=== PATIENT | female | born 1925 | race Asian ===

== ENCOUNTER 2016-08-07 12:23 | Emergency (ER) | payer MEDICARE, OTHER ==
[~2016-08-07] VITALS: Ht 162.6 cm; Wt 70.4 kg
[~2016-08-07 12:23] MED LIST: ACET-2902 PO; ALBU0.424 IH; AMLO-511 PO; BISA10SU8 PR; CARV12 PO; CHOL200018 PO; CLON.1 PO; DEXT1CAP3 PO; DOCU240C PO; FERR-72 GT; LORA1TAB3 PO; MOM30 PO; ONDA4 PO; OXYB5TAB27 PO; PANT40TA25 PO; RISP.5 PO; SOLI5 PO; ZOLP5 PO
[2016-08-07] MEDS ORDERED: DIATRIZOATE MEGLU/SOD 660/100 MG/ML 120 ML BOTTLE ONE (14:59)
[2016-08-07 15:39] VITALS: BP 142/45
== END 2016-08-07 16:28 | disposition home or self-care (01) ==
LOC: EMS 12:31
DX: K94.23 Gastrostomy malfunction (principal); I10 Essential (primary) hypertension
CPT/HCPCS: 36245; 49440; 99284; C1769; Q9963

== ENCOUNTER 2016-08-24 16:29 | Emergency (ER) | payer MEDICARE, OTHER ==
[~2016-08-24] VITALS: Ht 172.7 cm; Wt 63.6 kg
[2016-08-24] MEDS ORDERED: FAMO20 PO (16:47)
[2016-08-24 17:16] LABS: BASOPHILS % (AUTO) 0.3 % (0.0-2.0); EOSINOPHILS % (AUTO) 4.3 % (1.0-6.0); HEMATOCRIT 34.1 % (36-46); HEMOGLOBIN 11.3 g/dL (12.0-16.0); LYMPHOCYTES # (AUTO) 1.6 K/uL (1.0-4.8); LYMPHOCYTES % (AUTO) 22.2 % (22.0-44.0); MEAN CORPUSCULAR HEMOGLOBIN 33.7 pg (26.0-34.0); MEAN CORPUSCULAR HGB CONC 33.1 G/dL (31.0-37.0); MEAN CORPUSCULAR VOLUME 102 fL (80-100); MONOCYTES # (AUTO) 0.6 K/uL (0.1-1.0); MONOCYTES % (AUTO) 8.2 % (2.0-9.0); NEUTROPHILS # (AUTO) 4.8 K/uL (1.8-7.7); PLATELET COUNT (AUTO) 268 K/uL (150-450); RED BLOOD CELL COUNT(AUTO) 3.36 MIL/uL (4.00-5.20); RED CELL DISTRIBUTION WIDTH 13.6 % (11.5-14.5); WHITE BLOOD COUNT (AUTO) 7.4 K/uL (4.5-11.0)
[2016-08-24 17:29] LABS: PROTHROMBIN TIME 10.2 SEC (9.4-11.6)
[2016-08-24 17:31] LABS: ANION GAP 7 mmol/L (8-16); CALCIUM, TOTAL 8.5 mg/dL (8.8-10.5); CARBON DIOXIDE 29 mmol/L (22-29); CHLORIDE 97 mmol/L (98-107); CREATININE 0.66 mg/dL (0.60-1.30); GLOMERULAR FILTR. RATE CALC > 60 mL/min (>60); SODIUM SERUM 133 mmol/L (136-145); UREA NITROGEN, BLOOD 19 mg/dL (7-18)
[2016-08-24 17:36] LABS: ALANINE AMINOTRANSFERASE 24 U/L (12-78); ALBUMIN 2.9 g/dL (3.4-5.0); ASPARTATE AMINOTRANSFERASE 21 U/L (15-37); BILIRUBIN,TOTAL 0.5 mg/dL (0.1-1.0); TOTAL PROTEIN, SERUM 7.8 g/dL (6.4-8.2)
[2016-08-24 17:48] LABS: RBC MORPHOLOGY COMMENT ABNORMAL RBC MORPH
[2016-08-24 19:10] VITALS: BP 168/79
== END 2016-08-24 19:12 | disposition home or self-care (01) ==
LOC: EMS 16:31
DX: K94.23 Gastrostomy malfunction (principal); I10 Essential (primary) hypertension
CPT/HCPCS: 99284

== ENCOUNTER 2016-08-25 10:45 | Emergency (ER) | payer MEDICARE, OTHER ==
[~2016-08-25] VITALS: Ht 165.1 cm; Wt 68.2 kg
[~2016-08-25 10:45] MED LIST changes: +FAMO20 PO
[2016-08-25] MEDS ORDERED: DIATRIZOATE MEGLU/SOD 660/100 MG/ML 120 ML BOTTLE ONE (13:29)
[2016-08-25] MEDS ORDERED: MIDAZOLAM HCL 2 MG/2 ML VIAL ONE (13:46)
[2016-08-25] MEDS ORDERED: FentaNYL CITRATE-PF 100 MCG/2 ML VIAL ONE (13:46)
[2016-08-25] MEDS ORDERED: LIDOCAINE HCL/PF 1% 30 ML VIAL ONE (13:46)
[2016-08-25 14:45] VITALS: BP 168/96
== END 2016-08-25 16:00 | disposition home or self-care (01) ==
LOC: EMS 10:46
DX: K94.23 Gastrostomy malfunction (principal); I12.9 Hypertensive chronic kidney disease with stage 1 through stage 4 chronic kidney disease, or unspecified chronic kidney disease; N18.9 Chronic kidney disease, unspecified
CPT/HCPCS: 36245; 49440; 99284; C1769; J3490; Q9963; 43760; J2250; J3010